=== PATIENT | male | born 1960 | race African-American/Black ===

== ENCOUNTER 2017-08-27 09:45 | Emergency (ER) | payer MEDICAID ==
[~2017-08-27] VITALS: Ht 175.3 cm; Wt 91.0 kg
[2017-08-27 12:30] VITALS: BP 147/103
[2017-08-27] MEDS ORDERED: KETOROLAC 30MG/ML VIAL IV ONE (12:30)
[2017-08-27] MEDS ORDERED: SULFAMETHOXAZOLE/TRIMETHOPRIM 800/160MG TABLET PO ONE (12:30)
== END 2017-08-27 13:45 | disposition home or self-care (01) ==
LOC: ER 10:23
DX: S50.361A Insect bite (nonvenomous) of right elbow, initial encounter (principal); T78.40XA Allergy, unspecified, initial encounter; M54.9 Dorsalgia, unspecified; F17.200 Nicotine dependence, unspecified, uncomplicated; F12.10 Cannabis abuse, uncomplicated; W57.XXXA Bitten or stung by nonvenomous insect and other nonvenomous arthropods, initial encounter; Y93.89 Activity, other specified; Y92.89 Other specified places as the place of occurrence of the external cause; Y99.8 Other external cause status
CPT/HCPCS: 96374; 99284; 99406; J1885

== ENCOUNTER 2018-02-15 11:41 | Emergency (ER) | payer SELFPAY ==
[~2018-02-15] VITALS: Ht 175.3 cm; Wt 91.0 kg
[2018-02-15] MEDS ORDERED: CYCLOBENZAPRINE 10MG TABLET PO ONE (13:15)
[2018-02-15] MEDS ORDERED: DEXAMETHASONE 10 MG/ML VIAL IM ONE (13:15)
[2018-02-15] MEDS ORDERED: ACETAMINOPHEN 325MG TABLET PO ONE (13:15)
[2018-02-15 16:15] VITALS: BP 136/84
== END 2018-02-15 16:18 | disposition home or self-care (01) ==
LOC: ER 13:53
DX: D17.0 Benign lipomatous neoplasm of skin and subcutaneous tissue of head, face and neck (principal); S00.93XA Contusion of unspecified part of head, initial encounter; S16.1XXA Strain of muscle, fascia and tendon at neck level, initial encounter; S20.229A Contusion of unspecified back wall of thorax, initial encounter; W10.9XXA Fall (on) (from) unspecified stairs and steps, initial encounter; M51.26 Other intervertebral disc displacement, lumbar region; Y92.89 Other specified places as the place of occurrence of the external cause; R03.0 Elevated blood-pressure reading, without diagnosis of hypertension; F12.90 Cannabis use, unspecified, uncomplicated; F17.210 Nicotine dependence, cigarettes, uncomplicated
CPT/HCPCS: 70450; 72125; 72131; 96372; 99284; J1100